=== PATIENT | female | born 1935 | race Caucasian/White ===

== ENCOUNTER 2016-04-12 13:11 | Inpatient (IN) | payer OTHER ==
[~2016-04-12] VITALS: Ht 157.5 cm; Wt 37.1 kg
--- NOTE | 2016-04-12 15:59 | ED NURSING NOTES ---
Clinical Report - Nurses [place] [address] [place] [address] 04/12/2016 13:16 Patient: SHELDON WATTS TRIAGE Triage time 1315 PM. Acuity: LEVEL 3. Chief Complaint: CHILLS, MUSCLE ACHES, FATIGUE and POOR APPETITE. Alert. No acute distress. SEPSIS SCREEN: Sepsis Screen. Negative (no infection suspected/documented). GRACIE COMA SCORE: Gracie Coma Scale: 15- eyes open spontaneously (4); best verbal response- oriented x 4 (5); best motor response- obeys commands (6). --13:37 Shona Bowles R.N. 13:22 04/12/16. BP: 100/63 (small adult cuff) taken on the right arm, via an automated monitor, while lying. HR: 83. RR: 15. O2 saturation: 95% on room air. Temp: 97.8 F (oral). Pain level now: 06/01. --13:37 Shona Bowles R.N. Weight: 35.3 kg stated. Height/Length: 62 inches Per Patient. BMI: 14.2. --13:27 Shona Bowles R.N. Medications Acetaminophen Oral. --13:29 Shona Bowles R.N. Aspirin Adult Low Strength Oral. --13:29 Shona Bowles R.N. Cardizem CD Oral. --13:30 Shona Bowles R.N. Ketoconazole External. --13:30 Shona Bowles R.N. Allergies Codeine. --13:30 Shona Bowles R.N. Oranges. --13:30 Shona Bowles R.N. Ketoprofen. --13:31 Shona Bowles R.N. Medication/allergy information source: the patient. --13:37 Shona Bowles R.N. History Arrived by EMS, and from the physician's office. Historian: patient. Primary physician (ANGEL Hoskins). ( Pt lives in an assistance living, states not feeling well for the past week, "had a cold" admits to productive( thick ) coughing, feeling dizzy. Pt states that has pain on the right flank pain when coughing. Denies any fever. The nurse at assistance living sent her to [facility], which states O2 at 86 RA, was brought over by EMS). Onset. (1 weeks). She has had weakness, a cough and difficulty breathing. Reports muscle aches. Treatment SHOE POLISHER: None. PAST MEDICAL HX: Immunizations: up-to-date. SOCIAL HX: Current every day light tobacco smoker- less than 1/2 a pack per day. No alcohol use or drug use. No infectious disease exposure. ABUSE ASSESSMENT: No report of abuse. SELF HARM ASSESSMENT: A self harm assessment was performed. The patient answered "no" to the question "Do you have thoughts of harming or killing yourself?" and "Have you recently had thoughts about harming or killing others?". FALL RISK ASSESSMENT: Fall risk assessment completed. No fall risk identified. NUTRITIONAL RISK ASSESSMENT: The nutritional risk assessment revealed no deficiencies. FUNCTIONAL ASSESSMENT: Functional assessment: no impairments noted. LEARNING NEEDS ASSESSMENT: The learning needs assessment revealed no barriers. SKIN INTEGRITY ASSESSMENT: Skin integrity risk assessment completed. No skin integrity risk identified. --13:37 Shona Bowles R.N. Treatment SHOE POLISHER: EMS report reviewed. See report. Oxygen administered. Nasal airway (2 l). Pulse oximeter applied (96). BP. Upon arrival patient awake. Oxygen being administered at 2 liters/min via nasal cannula. --13:41 Shona Bowles R.N. PROBLEMS: Seborrheic Dermatitis. Atrial Fibrillation. --13:31 Shona Bowles R.N. ADDITIONAL SURGERIES: Breast Augmentation. --13:31 Shona Bowles R.N. Interventions ID band on patient. --13:37 Shona Bowles R.N. PHYSICAL ASSESSMENT To room via stretcher. GENERAL / NEURO / PSYCH: Alert. Oriented X 4. Appears in no acute distress. RESPIRATORY: Respirations not labored. Cough. Right mid- costochondral tenderness. Breath sounds within normal limits. CVS: Capillary refill less than 2 seconds. Pulses within normal limits. GI / : Abdomen soft and nontender and normal bowel sounds. SKIN: Skin intact. Skin is warm and dry. Poor skin turgor. --13:38 Shona Bowles R.N. NURSING PROGRESS NOTES Cardiac rhythm: atrial fibrillation. The initial plan of care for this patient has been created This plan of care was discussed with the patient. Oxygen administered. Monitoring of patient in place. Patient gowned. Reassurance given. Reassessment after oxygen administered. She is calm. GENERAL / NEURO / PSYCH: Denies headache. Two patient identifiers checked. Call light placed in reach. Side rails up x 2. Bed placed in lowest position. Brakes of bed on. Brakes of chair on. --13:43 Shona Bowles R.N. 13:39 04/12/16. BP: 113/64 (small adult cuff) taken on the left arm, via an automated monitor, while lying. HR: 85. RR: 17. O2 saturation: 98%. O2 started via nasal cannula at 2 liters/minute. Pain level now: 3/10. --13:43 Shona Bowles R.N. 14:13 04/12/2016 Site #1 started via IV in the left forearm with an 22g angiocath; two attempts. Saline lock flushed. --14:13 Shona Bowles R.N. 14:14 04/12/2016 Started bag #1 1000 mL IV Fluids IV NS (Saline); [place] [address] mL/kg over 1 hour(s) via site #1 via IV pump. Allergies verified and confirmed 5 rights. IV patency established. IV site checked: no pain, redness, or swelling. IV flushed thoroughly pre- and post-medication administration. --14:14 Shona Bowles R.N. EKG time: (13:59). EKG was performed by a tech and shown to the ED physician. --14:24 Beatris Young 15:16 04/12/16. BP: 125/60. HR: 66. RR: 18. O2 saturation: 98%. Pain level now 0/10. --15:17 Maine Carr R.N. ( pt has had her xray. resume fluids.). --15:17 Bruno, Maine, R.N. quality assurance monitor body, pulse oximeter and NIBP monitor placed on patient; bus monitor- Lead II; monitor alarms on. The patient is calm and resting quietly. Call light placed in reach. --15:17 Maine Carr R.N. ( Lab called for BC x 2.). --15:23 Maine Carr R.N. 1430 late entry -118 PM. Cardiac rhythm: atrial fibrillation. Oxygen administered. Monitoring of patient in place. Reassurance given. The patient is calm and resting quietly. RESPIRATORY: Denies difficulty breathing. CVS: Denies chest pain. GI / : Denies nausea. --15:44 Shona Bowles R.N. 14:30 04/12/16. BP: 138/60. HR: 70 (irregular). RR: 22. O2 saturation: 96%. O2 started via nasal cannula at 2 liters/minute. Pain level now: 0/10. Additional comments: pt O2 goes down to 86 on RA. --15:44 Shona Bowles R.N. 15:45 PM late entry -. Cardiac rhythm: atrial fibrillation. Reassurance given. 16 fr in/out catheterization. During procedure hand hygiene observed. Return of 100 mL yellow-colored clear urine; odor is normal. She tolerated procedure well. ( Lab at bedside attempted BC x2 unable to obtain, UA obtained via cath. Pt still SOB on exertion). CVS: Denies chest pain. Two patient identifiers checked. Call light placed in reach. Side rails up x 2. Bed placed in lowest position. Brakes of bed on. Brakes of chair on. --16:00 Shona Bowles R.N. 15:30 04/12/16. BP: 123/61. HR: 67. RR: 18. O2 saturation: 93%. O2 started via nasal cannula at 3 liters/minute. Pain level now: 0/10. --16:00 Shona Bowles R.N. 16:00 04/12/2016 IV Fluids IV NS Bag Change: bag #1 completed. Total amount infused: 1000. STARTED bag #2 (1000 mL) at 100 mL/hr via IV pump. Confirmed 5 rights. IV patency established. IV site checked: no pain, redness, or swelling. IV flushed thoroughly. --16:00 Shona Bowles R.N. 16:08 04/12/16. Temp: 96.8 F (rectal). --16:08 Shona Bowles R.N. 16:05 04/12/16. Temp: 97 F (rectal). --16:15 Beatris Young 16:33 04/12/2016 Duoneb (Ipratropium-Albuterol) Neb TX Nebulizer 1 unit dose given. --16:33 Alcira Rea 17:13 04/12/2016 Started 1 gm of Ceftriaxone IVPB in bag #1 50 mL; at 150 mL/hr over 30 minute(s) via site #1 via IV pump. Allergies verified and confirmed 5 rights. IV patency established. IV site checked: no pain, redness, or swelling. IV flushed thoroughly pre- and post-medication administration. --17:13 Shona Bowles R.N. 17:00 late entry - PM. Cardiac rhythm: atrial fibrillation. Reassurance given. Reassessment after oxygen and fluids administered and medication administered. She has had no adverse reaction. Overall patient status is improved- she states feels better. RESPIRATORY: Denies difficulty breathing. Respiratory distress present. CVS: Denies chest pain. GI / : Denies nausea. Two patient identifiers checked. Call light placed in reach. Side rails up. Bed placed in lowest position. Brakes of bed on. Brakes of chair on. --17:45 Shona Bowles R.N. 17:43 04/12/16. BP: 122/64. HR: 65 (irregular). RR: 20. O2 saturation: 98%. O2 started via nasal cannula at 2 liters/minute. Pain level now: 0/10. --17:45 Shona Bowles R.N. The patient reports no complaints. Patient waiting for admit bed and (Report). --17:52 Shona Bowles R.N. 18:00 04/12/2016 Ceftriaxone IVPB Response: no adverse reaction. --18:56 Shona Bowles R.N. 18:01 04/12/2016 Ceftriaxone IVPB Discontinued: bag #1 infused upon admission. Total amount infused: 50 mL. IV patency established. IV site checked: no pain, redness, or swelling. IV flushed thoroughly. --18:56 Shona Bowles R.N. DISPOSITION / DISCHARGE 18:39 04/12/2016 Site #1 reassessed; patent and infusing well. --18:54 Shona Bowles R.N. Cardiac rhythm: atrial fibrillation. Departure time: 1835 PM. The goals identified in the patient's plan of care were met. Admitted to Acute Care. Report was given to a nurse. Report included patient's care, treatment, medications, reviewed medication reconcilliation, and condition (including any recent changes or anticipated changes). All questions were answered. Report was acknowledged. (KRISTAL Stuart). ( Pt transferred safely, IV patent). --18:56 Shona Bowles R.N. 18:30 04/12/16. BP: 121/99 (regular adult cuff) taken on the right arm, while lying. HR: 79. RR: 20. O2 saturation: 96%. O2 started via nasal cannula at 2 liters/minute. Temp: 97.8 F (oral). Pain level now: 0/10. --18:56 Shona Bowles R.N. Locked/Released at 04/12/2016 18:57 by Shona Bowles R.N.
--- NOTE | 2016-04-12 15:59 | ED CLINICAL REPORT ---
Clinical Report - Physicians/Mid Levels [facility] [address] [place] [address] 04/12/2016 13:16 Patient: SHELDON WATTS Time Seen: 13:51 Apr 12 2016. Arrived- By ambulance. Historian- EMS personnel. HISTORY OF PRESENT ILLNESS Chief Complaint: COUGH. This started 7 days and is still present. The illness is described as mild. The patient has had sputum production, a cough and muscle aches. No chest discomfort or pain or sinus drainage. Additional history - No known contact with a sick individual. (patient lives in assisted living, and was referred to go see her primary care doctor today, upon arrival to such, she had oxygen of 85-86% room air, and was referred to the ER by EMS.). REVIEW OF SYSTEMS No nausea, diarrhea, calf pain or pain or difficulty with urination. No mouth sores, chest pain or abdominal pain. All systems otherwise negative, except as recorded above. PAST HISTORY Pt care at [facility] Full code. Problems: Seborrheic Dermatitis. Atrial Fibrillation. Additional Surgeries: Breast Augmentation. Medications: Ketoconazole External. Cardizem CD Oral. Aspirin Adult Low Strength Oral. Acetaminophen Oral. Allergies: Codeine. Ketoprofen. Oranges. ADDITIONAL NOTES The nursing notes have been reviewed. PHYSICAL EXAM Vital Signs: 04/12/2016 13:22 BP: 100/63. HR: 83. RR: 15. O2 saturation: 95%. Temp: 97.8 F. Pain level now: 3/10. Appearance: Alert. No apparent distress. Eyes: Eyes normal inspection. ENT: Ears normal. Pharynx normal. Uvula midline. No tonsillar exudate or muffled or hoarse voice. Neck: Normal inspection. CVS: Abnormal rate (irreg/ irreg). Respiratory: No respiratory distress. Breath sounds normal. Back: (dry scaling skin noted). Neuro: The patient is disoriented (to year only). LABS, X-RAYS, AND EKG EKG: EKG time: (1359). No acute process. No acute ischemia. Rate: 79. premature atrial complxes. The study has been interpreted contemporaneously. The EKG appears to be a good tracing. Laboratory Tests: UA-Culture if indicated: (MARIE: 04/12/2016 15:55) ( [facility] 04/12/2016 16:50) Final results Test Result Flag Units (Reference) URINE COLOR YELLOW URINE APPEARANCE CLEAR URINE GLUCOSE NEGATIVE (NEGATIVE) URINE BILIRUBIN ICTOTEST NEGATIVE (NEGATIVE) URINE KETONE 2+ (NEGATIVE) URINE SPECIFIC GRAVITY 1.025 (1.010-1.030) URINE PH 6.0 (5.0-8.0) URINE PROTEIN Y (NEGATIVE) URINE UROBILINOGEN 0.2 EU/dL (0.2-1.0) URINE NITRITE NEGATIVE (NEGATIVE) URINE BLOOD NEGATIVE (NEGATIVE) URINE LEUK ESTERASE NEGATIVE (NEGATIVE) URINE RBC NONE SEEN rbc/hpf (0-1) URINE WBC RARE wbc/hpf (0-1) URINE EPITHELIAL CELLS RARE EPI/hpf (0-5) URINE BACTERIA NONE SEEN (NONE SEEN) URINE COMMENT CULT NOT INDICATED 10-15 Hyaline Casts/l.p.f.URINE CULTURES ARE SET-UP BASED ON THE FOLLOWING CRITERIA:POSITIVE NITRITEPOSITIVE LEUKOCYTE ESTERASEGREATER THAN 10 WHITE BLOOD CELLSMODERATE (2+) OR GREATER BACTERIA CBC w Diff: (MARIE: 04/12/2016 14:00) ( [facility] 04/12/2016 14:08) Final results Test Result Flag Units (Reference) WHITE BLOOD COUNT 3.2 L K/uL (4.5-11.5) RED BLOOD COUNT 5.22 H M/uL (4.00-5.20) HEMOGLOBIN 13.7 gm/dL (12.0-16.0) HEMATOCRIT 43.4 % (36.0-46.0) MEAN CELL VOLUME 83 fL (80-100) MEAN CORPUSCULAR HGB 26 pg (26-34) MEAN CORPUSCULAR HGB CONC 32 g/dL (31-37) RED CELL DISTRIBUTION WIDTH 14.6 % (11.6-14.8) PLATELET COUNT 226 K/uL (150-400) NEUTROPHIL % 70.2 % (50-75) LYMPH % 19.5 L % (25-40) MONO % 9.8 % (3-14) EOSINOPHIL % 0.2 % (0-4) BASOPHIL % 0.3 % (0-2) [id number]: (MARIE: 04/12/2016 14:00) ( [facility] 04/12/2016 16:26) Final results Test Result Flag Units (Reference) D-DIMER QUANTITATIVE 1.07 H ug/mLFEU (0.27-0.52) The primary value of this quantitative assay relates toits negative predictive value (i.e. exclusion) of pulmonaryembolism/deep vein thrombosis/DIC.Elevated levels of d-dimer may also occur with:, age, cancer, inflammation, liver disease,post-op, infection, hematoma, coronary disease, peripheralarteriopathy, bleeding disorders and thrombolytic treatment.Results should be correlated with other clinical andradiological data.Testing Methodology: Latex Immunoassay Lactate, Serum: (MARIE: 04/12/2016 14:40) ( [facility] 04/12/2016 15:14) Final results Test Result Flag Units (Reference) LACTIC ACID 1.3 mmol/L (0.4-2.0) [id number]: (MARIE: 04/12/2016 14:40) ( [facility] 04/12/2016 15:25) Final results Test Result Flag Units (Reference) PROCALCITONIN <0.5 ng/mL (0-0.5) PCT Concentration: Interpretation : Risk/option for action PCT <=0.5 ng/mL : Systemic : Low risk forinfection(sepsis): progression to severeis not likely. : systemic infection.Local bacterial : CAUTION-PCT levelsinfection is : below 0.5 ng/mL do notpossible. : exclude an infection,because localizedinfections (withoutsystemic signs) may beassociated with suchlow levels. If PCT ismeasured very earlyafter a bacterialchallenge (usually <6hours), these valuesmay still be low. Inthis case PCT shouldbe re-assessed 6-24hours later. PCT >0.5 and : Systemic infection: Moderate risk for<= 2 ng/mL : (sepsis) is : progression to severepossible, but : systemic infection.other conditions : The patient should beare known to : closely monitoredelevate PCT. : both clinically andby re-assessing PCTwithin 6-24 hours. PCT > 2 ng/mL : Systemic infection: High risk for(sepsis) is likely: progression to severeunless other : systemic infection.causes are known. : PCT >= 10 ng/mL : Important systemic: High likelihood ofinflammatory : severe sepsis orresponse, almost : septic shock.exclusively due to:severe bacterial :sepsis or septic :shock. : CHEM 13 PANEL: (MARIE: 04/12/2016 14:00) ( MsgRcvd 04/12/2016 14:28) Final results Test Result Flag Units (Reference) GLUCOSE 81 mg/dL (70-110) BUN 42 H mg/dL (7-18) CREATININE 1.6 H mg/dL (0.6-1.3) Estimated GFR 32.96 mL/min Estimated GFR- 39.95 mL/min Note: Persistent reduction over 3 months in eGFR<60 mL/min/1.73 m2 defines CKD. Patients with eGFR values>=60 mL/min/1.73 m2 may also have CKD if evidence ofpersistent proteinuria. Additional information may be foundat www.kidney.org. SODIUM 131 L mmol/L (136-145) POTASSIUM 5.1 mmol/L (3.5-5.1) CHLORIDE 97 L mmol/L (98-107) CARBON DIOXIDE 20 L mmol/L (21-32) CALCIUM 9.3 mg/dL (8.5-10.1) TOTAL PROTEIN 7.3 g/dL (6.4-8.2) ALBUMIN 3.4 g/dL (3.3-5.0) BILIRUBIN, TOTAL 0.4 mg/dL (0.0-1.0) ALKALINE PHOSPHATASE 61 U/L (46-116) AST (SGOT) 45 H U/L (15-37) ALT (SGPT) 22 U/L (12-78) MAGNESIUM 2.0 mg/dL (1.8-2.4) CPK 123 U/L (24-260) TROPONIN I <0.05 ng/mL (0.00-1.5) TROPONIN REFERENCE RANGE:<0.1 NEGATIVE0.1-1.5 INDETERMINANT>1.5 POSITIVE Rapid Influenza Screen: (MARIE: 04/12/2016 14:20) ( MsgRcvd 04/12/2016 14:53) Final results SPECIMEN DESCRIPTION: N Test Result Flag Units (Reference) RAPID INFLUENZA SCREEN DATE: 04/12/16 INFLUENZA A: NEGATIVE SCREEN FOR INFLUENZA A INFLUENZA B: NEGATIVE SCREEN FOR INFLUENZA B . PROGRESS AND PROCEDURES Course of Care: Patient here in the ER, with a weakness, Reports unable to get to the cafeteria at her assisted living, as it is difficult to ambulate. Patient has had fevers chills, cough at this time concern for acute exacerbation of her COPD, with dehydration, case discussed with Dr. Domingo, who will admit for observation. Holding orders written by Dr. Mackey. 04/12/2016 13:39 BP: 113/64. HR: 85. RR: 17. O2 saturation: 98%. Pain level now: 3/10. Patient is stable. Physical exam findings are improved. Symptoms better. Patient/family counseled. Disposition: Discharged. CLINICAL IMPRESSION Dehydration COPD exacerbation. INSTRUCTIONS Drink plenty of fluids. (Electronically signed by Catalina Cruz P.A.-C 04/12/2016 23:10)
--- NOTE | 2016-04-12 15:59 | ED CLINICAL REPORT ---
Clinical Report - Physicians/Mid Levels [facility] [address] [place] [address] 04/12/2016 13:16 Patient: SHELDON WATTS Time Seen: 13:51 Apr 12 2016. Arrived- By ambulance. Historian- EMS personnel. HISTORY OF PRESENT ILLNESS Chief Complaint: COUGH. This started 7 days and is still present. The illness is described as mild. The patient has had sputum production, a cough and muscle aches. No chest discomfort or pain or sinus drainage. Additional history - No known contact with a sick individual. (patient lives in assisted living, and was referred to go see her primary care doctor today, upon arrival to such, she had oxygen of 85-86% room air, and was referred to the ER by EMS.). REVIEW OF SYSTEMS No nausea, diarrhea, calf pain or pain or difficulty with urination. No mouth sores, chest pain or abdominal pain. All systems otherwise negative, except as recorded above. PAST HISTORY Pt care at [facility] Full code. Problems: Seborrheic Dermatitis. Atrial Fibrillation. Additional Surgeries: Breast Augmentation. Medications: Ketoconazole External. Cardizem CD Oral. Aspirin Adult Low Strength Oral. Acetaminophen Oral. Allergies: Codeine. Ketoprofen. Oranges. ADDITIONAL NOTES The nursing notes have been reviewed. PHYSICAL EXAM Vital Signs: 04/12/2016 13:22 BP: 100/63. HR: 83. RR: 15. O2 saturation: 95%. Temp: 97.8 F. Pain level now: 3/10. Appearance: Alert. No apparent distress. Eyes: Eyes normal inspection. ENT: Ears normal. Pharynx normal. Uvula midline. No tonsillar exudate or muffled or hoarse voice. Neck: Normal inspection. CVS: Abnormal rate (irreg/ irreg). Respiratory: No respiratory distress. Breath sounds normal. Back: (dry scaling skin noted). Neuro: The patient is disoriented (to year only). LABS, X-RAYS, AND EKG EKG: EKG time: (1359). No acute process. No acute ischemia. Rate: 79. premature atrial complxes. The study has been interpreted contemporaneously. The EKG appears to be a good tracing. Laboratory Tests: UA-Culture if indicated: (MARIE: 04/12/2016 15:55) ( [facility] 04/12/2016 16:50) Final results Test Result Flag Units (Reference) URINE COLOR YELLOW URINE APPEARANCE CLEAR URINE GLUCOSE NEGATIVE (NEGATIVE) URINE BILIRUBIN ICTOTEST NEGATIVE (NEGATIVE) URINE KETONE 2+ (NEGATIVE) URINE SPECIFIC GRAVITY 1.025 (1.010-1.030) URINE PH 6.0 (5.0-8.0) URINE PROTEIN Y (NEGATIVE) URINE UROBILINOGEN 0.2 EU/dL (0.2-1.0) URINE NITRITE NEGATIVE (NEGATIVE) URINE BLOOD NEGATIVE (NEGATIVE) URINE LEUK ESTERASE NEGATIVE (NEGATIVE) URINE RBC NONE SEEN rbc/hpf (0-1) URINE WBC RARE wbc/hpf (0-1) URINE EPITHELIAL CELLS RARE EPI/hpf (0-5) URINE BACTERIA NONE SEEN (NONE SEEN) URINE COMMENT CULT NOT INDICATED 10-15 Hyaline Casts/l.p.f.URINE CULTURES ARE SET-UP BASED ON THE FOLLOWING CRITERIA:POSITIVE NITRITEPOSITIVE LEUKOCYTE ESTERASEGREATER THAN 10 WHITE BLOOD CELLSMODERATE (2+) OR GREATER BACTERIA CBC w Diff: (MARIE: 04/12/2016 14:00) ( [facility] 04/12/2016 14:08) Final results Test Result Flag Units (Reference) WHITE BLOOD COUNT 3.2 L K/uL (4.5-11.5) RED BLOOD COUNT 5.22 H M/uL (4.00-5.20) HEMOGLOBIN 13.7 gm/dL (12.0-16.0) HEMATOCRIT 43.4 % (36.0-46.0) MEAN CELL VOLUME 83 fL (80-100) MEAN CORPUSCULAR HGB 26 pg (26-34) MEAN CORPUSCULAR HGB CONC 32 g/dL (31-37) RED CELL DISTRIBUTION WIDTH 14.6 % (11.6-14.8) PLATELET COUNT 226 K/uL (150-400) NEUTROPHIL % 70.2 % (50-75) LYMPH % 19.5 L % (25-40) MONO % 9.8 % (3-14) EOSINOPHIL % 0.2 % (0-4) BASOPHIL % 0.3 % (0-2) [id number]: (MARIE: 04/12/2016 14:00) ( [facility] 04/12/2016 16:26) Final results Test Result Flag Units (Reference) D-DIMER QUANTITATIVE 1.07 H ug/mLFEU (0.27-0.52) The primary value of this quantitative assay relates toits negative predictive value (i.e. exclusion) of pulmonaryembolism/deep vein thrombosis/DIC.Elevated levels of d-dimer may also occur with:, age, cancer, inflammation, liver disease,post-op, infection, hematoma, coronary disease, peripheralarteriopathy, bleeding disorders and thrombolytic treatment.Results should be correlated with other clinical andradiological data.Testing Methodology: Latex Immunoassay Lactate, Serum: (MARIE: 04/12/2016 14:40) ( [facility] 04/12/2016 15:14) Final results Test Result Flag Units (Reference) LACTIC ACID 1.3 mmol/L (0.4-2.0) [id number]: (MARIE: 04/12/2016 14:40) ( [facility] 04/12/2016 15:25) Final results Test Result Flag Units (Reference) PROCALCITONIN <0.5 ng/mL (0-0.5) PCT Concentration: Interpretation : Risk/option for action PCT <=0.5 ng/mL : Systemic : Low risk forinfection(sepsis): progression to severeis not likely. : systemic infection.Local bacterial : CAUTION-PCT levelsinfection is : below 0.5 ng/mL do notpossible. : exclude an infection,because localizedinfections (withoutsystemic signs) may beassociated with suchlow levels. If PCT ismeasured very earlyafter a bacterialchallenge (usually <6hours), these valuesmay still be low. Inthis case PCT shouldbe re-assessed 6-24hours later. PCT >0.5 and : Systemic infection: Moderate risk for<= 2 ng/mL : (sepsis) is : progression to severepossible, but : systemic infection.other conditions : The patient should beare known to : closely monitoredelevate PCT. : both clinically andby re-assessing PCTwithin 6-24 hours. PCT > 2 ng/mL : Systemic infection: High risk for(sepsis) is likely: progression to severeunless other : systemic infection.causes are known. : PCT >= 10 ng/mL : Important systemic: High likelihood ofinflammatory : severe sepsis orresponse, almost : septic shock.exclusively due to:severe bacterial :sepsis or septic :shock. : CHEM 13 PANEL: (MARIE: 04/12/2016 14:00) ( MsgRcvd 04/12/2016 14:28) Final results Test Result Flag Units (Reference) GLUCOSE 81 mg/dL (70-110) BUN 42 H mg/dL (7-18) CREATININE 1.6 H mg/dL (0.6-1.3) Estimated GFR 32.96 mL/min Estimated GFR- 39.95 mL/min Note: Persistent reduction over 3 months in eGFR<60 mL/min/1.73 m2 defines CKD. Patients with eGFR values>=60 mL/min/1.73 m2 may also have CKD if evidence ofpersistent proteinuria. Additional information may be foundat www.kidney.org. SODIUM 131 L mmol/L (136-145) POTASSIUM 5.1 mmol/L (3.5-5.1) CHLORIDE 97 L mmol/L (98-107) CARBON DIOXIDE 20 L mmol/L (21-32) CALCIUM 9.3 mg/dL (8.5-10.1) TOTAL PROTEIN 7.3 g/dL (6.4-8.2) ALBUMIN 3.4 g/dL (3.3-5.0) BILIRUBIN, TOTAL 0.4 mg/dL (0.0-1.0) ALKALINE PHOSPHATASE 61 U/L (46-116) AST (SGOT) 45 H U/L (15-37) ALT (SGPT) 22 U/L (12-78) MAGNESIUM 2.0 mg/dL (1.8-2.4) CPK 123 U/L (24-260) TROPONIN I <0.05 ng/mL (0.00-1.5) TROPONIN REFERENCE RANGE:<0.1 NEGATIVE0.1-1.5 INDETERMINANT>1.5 POSITIVE Rapid Influenza Screen: (MARIE: 04/12/2016 14:20) ( MsgRcvd 04/12/2016 14:53) Final results SPECIMEN DESCRIPTION: N Test Result Flag Units (Reference) RAPID INFLUENZA SCREEN DATE: 04/12/16 INFLUENZA A: NEGATIVE SCREEN FOR INFLUENZA A INFLUENZA B: NEGATIVE SCREEN FOR INFLUENZA B . PROGRESS AND PROCEDURES Course of Care: Patient here in the ER, with a weakness, Reports unable to get to the cafeteria at her assisted living, as it is difficult to ambulate. Patient has had fevers chills, cough at this time concern for acute exacerbation of her COPD, with dehydration, case discussed with Dr. Domingo, who will admit for observation. Holding orders written by Dr. Mackey. 04/12/2016 13:39 BP: 113/64. HR: 85. RR: 17. O2 saturation: 98%. Pain level now: 3/10. Patient is stable. Physical exam findings are improved. Symptoms better. Patient/family counseled. Disposition: Discharged. CLINICAL IMPRESSION Dehydration COPD exacerbation. INSTRUCTIONS Drink plenty of fluids. (Electronically signed by Catalina Cruz P.A.-C 04/12/2016 23:10)
--- NOTE | 2016-04-12 15:59 | ED ORDER SUMMARY ---
..... Patient: SHELDON WATTS OrderSheet [facility] VisitID: [id number] [place] [address] 80y, F Registration Date/Time: 04/12/2016 ORDER SHEET Weight: 35.3 kg (stated) Allergies: Codeine, Oranges, Ketoprofen GENERAL ORDERS: Chest 2V Urgent (13:49 04/12/2016 EKoroleva P.A.-C) (Ack 13:52 LTapper) (14:53 EHassan R.N.) Rapid Influenza Screen (Nasal Pharyngeal) (n) Urgent (13:49 04/12/2016 EKoroleva P.A.-C) (Ack 13:52 LTapper) (14:24 EHassan R.N.) Cardiac Panel Stat (13:49 04/12/2016 EKoroleva P.A.-C) (Ack 13:52 LTapper) (14:13 EHassan R.N.) UA-Culture if indicated Urgent (13:49 04/12/2016 EKoroleva P.A.-C) (Ack 13:52 LTapper) (16:10 EHassan R.N.) Parlor Maid (Continuous) (13:49 04/12/2016 EKoroleva P.A.-C) (14:13 EHassan R.N.) EKG - ER Stat (13:49 04/12/2016 EKoroleva P.A.-C) (Ack 13:52 LTapper) (14:13 EHassan R.N.) Oxygen (2 L/min) (NC) (13:49 04/12/2016 EKoroleva P.A.-C) (14:13 EHassan R.N.) PCT (Procalcitonin) Urgent (14:17 04/12/2016 EKoroleva P.A.-C) (Ack 14:45 LTapper) (14:53 EHassan R.N.) Lactate, Serum Urgent (14:17 04/12/2016 EKoroleva P.A.-C) (Ack 14:45 LTapper) (14:53 EHassan R.N.) Blood Culture (Yes) (N/A) Urgent (15:02 04/12/2016 EKoroleva P.A.-C) (Ack 15:17 LTapper) (15:21 SBalde R.N.) D-Dimer Urgent (15:45 04/12/2016 EKoroleva P.A.-C) (Ack 15:46 LTapper) (18:18 EHassan R.N.) Vitals (Temp) (rectal temp) (15:45 04/12/2016 EKoroleva P.A.-C) (16:08 EHassan R.N.) MEDICATION ORDERS: DuoNeb Neb Tx 1 unit dose (NOW) (16:18 04/12/2016 EKoroleva P.A.-C) (16:33 RMcCarson) IV FLUIDS: IV NS : initial bolus 1000 mL (1000 mL/hr), then 100 mL/hr for X1 (NOW); Lavelle (13:49 04/12/2016 EKoroleva P.A.-C) (14:14 EHassan R.N.) Ceftriaxone IV 1 gm/50mL (NOW) (16:18 04/12/2016 EKoroleva P.A.-C) (Ack 16:22 SStone R.N.) (17:13 EHassan R.N.) ORDER SHEET NOTES: [Electronically signed by Shona Bowles R.N. (18:57 04/12/2016)] [Electronically locked/signed by Shona Bowles R.N. (18:57 04/12/2016)]
--- NOTE | 2016-04-12 15:59 | ED ORDER SUMMARY ---
..... Patient: SHELDON WATTS OrderSheet [facility] VisitID: [id number] [place] [address] 80y, F Registration Date/Time: 04/12/2016 ORDER SHEET Weight: 35.3 kg (stated) Allergies: Codeine, Oranges, Ketoprofen GENERAL ORDERS: Chest 2V Urgent (13:49 04/12/2016 EKoroleva P.A.-C) (Ack 13:52 LTapper) (14:53 EHassan R.N.) Rapid Influenza Screen (Nasal Pharyngeal) (n) Urgent (13:49 04/12/2016 EKoroleva P.A.-C) (Ack 13:52 LTapper) (14:24 EHassan R.N.) Cardiac Panel Stat (13:49 04/12/2016 EKoroleva P.A.-C) (Ack 13:52 LTapper) (14:13 EHassan R.N.) UA-Culture if indicated Urgent (13:49 04/12/2016 EKoroleva P.A.-C) (Ack 13:52 LTapper) (16:10 EHassan R.N.) Rn Primary Care (Continuous) (13:49 04/12/2016 EKoroleva P.A.-C) (14:13 EHassan R.N.) EKG - ER Stat (13:49 04/12/2016 EKoroleva P.A.-C) (Ack 13:52 LTapper) (14:13 EHassan R.N.) Oxygen (2 L/min) (NC) (13:49 04/12/2016 EKoroleva P.A.-C) (14:13 EHassan R.N.) PCT (Procalcitonin) Urgent (14:17 04/12/2016 EKoroleva P.A.-C) (Ack 14:45 LTapper) (14:53 EHassan R.N.) Lactate, Serum Urgent (14:17 04/12/2016 EKoroleva P.A.-C) (Ack 14:45 LTapper) (14:53 EHassan R.N.) Blood Culture (Yes) (N/A) Urgent (15:02 04/12/2016 EKoroleva P.A.-C) (Ack 15:17 LTapper) (15:21 SBalde R.N.) D-Dimer Urgent (15:45 04/12/2016 EKoroleva P.A.-C) (Ack 15:46 LTapper) (18:18 EHassan R.N.) Vitals (Temp) (rectal temp) (15:45 04/12/2016 EKoroleva P.A.-C) (16:08 EHassan R.N.) MEDICATION ORDERS: DuoNeb Neb Tx 1 unit dose (NOW) (16:18 04/12/2016 EKoroleva P.A.-C) (16:33 RMcCarson) IV FLUIDS: IV NS : initial bolus 1000 mL (1000 mL/hr), then 100 mL/hr for X1 (NOW); Lavelle (13:49 04/12/2016 EKoroleva P.A.-C) (14:14 EHassan R.N.) Ceftriaxone IV 1 gm/50mL (NOW) (16:18 04/12/2016 EKoroleva P.A.-C) (Ack 16:22 SStone R.N.) (17:13 EHassan R.N.) ORDER SHEET NOTES: [Electronically signed by Shona Bowles R.N. (18:57 04/12/2016)] [Electronically locked/signed by Shona Bowles R.N. (18:57 04/12/2016)]
--- NOTE | 2016-04-12 15:59 | ED NURSING NOTES ---
Clinical Report - Nurses [place] [address] [place] [address] 04/12/2016 13:16 Patient: SHELDON WATTS TRIAGE Triage time 1315 PM. Acuity: LEVEL 3. Chief Complaint: CHILLS, MUSCLE ACHES, FATIGUE and POOR APPETITE. Alert. No acute distress. SEPSIS SCREEN: Sepsis Screen. Negative (no infection suspected/documented). GRACIE COMA SCORE: Gracie Coma Scale: 15- eyes open spontaneously (4); best verbal response- oriented x 4 (5); best motor response- obeys commands (6). --13:37 Shona Bowles R.N. 13:22 04/12/16. BP: 100/63 (small adult cuff) taken on the right arm, via an automated monitor, while lying. HR: 83. RR: 15. O2 saturation: 95% on room air. Temp: 97.8 F (oral). Pain level now: 06/01. --13:37 Shona Bowles R.N. Weight: 35.3 kg stated. Height/Length: 62 inches Per Patient. BMI: 14.2. --13:27 Shona Bowles R.N. Medications Acetaminophen Oral. --13:29 Shona Bowles R.N. Aspirin Adult Low Strength Oral. --13:29 Shona Bowles R.N. Cardizem CD Oral. --13:30 Shona Bowles R.N. Ketoconazole External. --13:30 Shona Bowles R.N. Allergies Codeine. --13:30 Shona Bowles R.N. Oranges. --13:30 Shona Bowles R.N. Ketoprofen. --13:31 Shona Bowles R.N. Medication/allergy information source: the patient. --13:37 Shona Bowles R.N. History Arrived by EMS, and from the physician's office. Historian: patient. Primary physician (ANGEL Hoskins). ( Pt lives in an assistance living, states not feeling well for the past week, "had a cold" admits to productive( thick ) coughing, feeling dizzy. Pt states that has pain on the right flank pain when coughing. Denies any fever. The nurse at assistance living sent her to [place], which states O2 at 86 RA, was brought over by EMS). Onset. (1 weeks). She has had weakness, a cough and difficulty breathing. Reports muscle aches. Treatment OFFICE SUPPORT SPECIALIST: None. PAST MEDICAL HX: Immunizations: up-to-date. SOCIAL HX: Current every day light tobacco smoker- less than 1/2 a pack per day. No alcohol use or drug use. No infectious disease exposure. ABUSE ASSESSMENT: No report of abuse. SELF HARM ASSESSMENT: A self harm assessment was performed. The patient answered "no" to the question "Do you have thoughts of harming or killing yourself?" and "Have you recently had thoughts about harming or killing others?". FALL RISK ASSESSMENT: Fall risk assessment completed. No fall risk identified. NUTRITIONAL RISK ASSESSMENT: The nutritional risk assessment revealed no deficiencies. FUNCTIONAL ASSESSMENT: Functional assessment: no impairments noted. LEARNING NEEDS ASSESSMENT: The learning needs assessment revealed no barriers. SKIN INTEGRITY ASSESSMENT: Skin integrity risk assessment completed. No skin integrity risk identified. --13:37 Shona Bowles R.N. Treatment OFFICE SUPPORT SPECIALIST: EMS report reviewed. See report. Oxygen administered. Nasal airway (2 l). Pulse oximeter applied (96). BP. Upon arrival patient awake. Oxygen being administered at 2 liters/min via nasal cannula. --13:41 Shona Bowles R.N. PROBLEMS: Seborrheic Dermatitis. Atrial Fibrillation. --13:31 Shona Bowles R.N. ADDITIONAL SURGERIES: Breast Augmentation. --13:31 Shona Bowles R.N. Interventions ID band on patient. --13:37 Shona Bowles R.N. PHYSICAL ASSESSMENT To room via stretcher. GENERAL / NEURO / PSYCH: Alert. Oriented X 4. Appears in no acute distress. RESPIRATORY: Respirations not labored. Cough. Right mid- costochondral tenderness. Breath sounds within normal limits. CVS: Capillary refill less than 2 seconds. Pulses within normal limits. GI / : Abdomen soft and nontender and normal bowel sounds. SKIN: Skin intact. Skin is warm and dry. Poor skin turgor. --13:38 Shona Bowles R.N. NURSING PROGRESS NOTES Cardiac rhythm: atrial fibrillation. The initial plan of care for this patient has been created This plan of care was discussed with the patient. Oxygen administered. Monitoring of patient in place. Patient gowned. Reassurance given. Reassessment after oxygen administered. She is calm. GENERAL / NEURO / PSYCH: Denies headache. Two patient identifiers checked. Call light placed in reach. Side rails up x 2. Bed placed in lowest position. Brakes of bed on. Brakes of chair on. --13:43 Shona Bowles R.N. 13:39 04/12/16. BP: 113/64 (small adult cuff) taken on the left arm, via an automated monitor, while lying. HR: 85. RR: 17. O2 saturation: 98%. O2 started via nasal cannula at 2 liters/minute. Pain level now: 3/10. --13:43 Shona Bowles R.N. 14:13 04/12/2016 Site #1 started via IV in the left forearm with an 22g angiocath; two attempts. Saline lock flushed. --14:13 Shona Bowles R.N. 14:14 04/12/2016 Started bag #1 1000 mL IV Fluids IV NS (Saline); at 78657 mL/kg over 1 hour(s) via site #1 via IV pump. Allergies verified and confirmed 5 rights. IV patency established. IV site checked: no pain, redness, or swelling. IV flushed thoroughly pre- and post-medication administration. --14:14 Shona Bowles R.N. EKG time: (13:59). EKG was performed by a tech and shown to the ED physician. --14:24 Beatris Young 15:16 04/12/16. BP: 125/60. HR: 66. RR: 18. O2 saturation: 98%. Pain level now 0/10. --15:17 Maine Carr R.N. ( pt has had her xray. resume fluids.). --15:17 Bruno, Maine, R.N. monitor car operator, pulse oximeter and NIBP monitor placed on patient; cardiac sonographer- Lead II; monitor alarms on. The patient is calm and resting quietly. Call light placed in reach. --15:17 Maine Carr R.N. ( Lab called for BC x 2.). --15:23 Maine Carr R.N. 1430 late entry -118 PM. Cardiac rhythm: atrial fibrillation. Oxygen administered. Monitoring of patient in place. Reassurance given. The patient is calm and resting quietly. RESPIRATORY: Denies difficulty breathing. CVS: Denies chest pain. GI / : Denies nausea. --15:44 Shona Bowles R.N. 14:30 04/12/16. BP: 138/60. HR: 70 (irregular). RR: 22. O2 saturation: 96%. O2 started via nasal cannula at 2 liters/minute. Pain level now: 0/10. Additional comments: pt O2 goes down to 86 on RA. --15:44 Shona Bowles R.N. 15:45 PM late entry -. Cardiac rhythm: atrial fibrillation. Reassurance given. 16 fr in/out catheterization. During procedure hand hygiene observed. Return of 100 mL yellow-colored clear urine; odor is normal. She tolerated procedure well. ( Lab at bedside attempted BC x2 unable to obtain, UA obtained via cath. Pt still SOB on exertion). CVS: Denies chest pain. Two patient identifiers checked. Call light placed in reach. Side rails up x 2. Bed placed in lowest position. Brakes of bed on. Brakes of chair on. --16:00 Shona Bowles R.N. 15:30 04/12/16. BP: 123/61. HR: 67. RR: 18. O2 saturation: 93%. O2 started via nasal cannula at 3 liters/minute. Pain level now: 0/10. --16:00 Shona Bowles R.N. 16:00 04/12/2016 IV Fluids IV NS Bag Change: bag #1 completed. Total amount infused: 1000. STARTED bag #2 (1000 mL) at 100 mL/hr via IV pump. Confirmed 5 rights. IV patency established. IV site checked: no pain, redness, or swelling. IV flushed thoroughly. --16:00 Shona Bowles R.N. 16:08 04/12/16. Temp: 96.8 F (rectal). --16:08 Shona Bowles R.N. 16:05 04/12/16. Temp: 97 F (rectal). --16:15 Beatris Young 16:33 04/12/2016 Duoneb (Ipratropium-Albuterol) Neb TX Nebulizer 1 unit dose given. --16:33 Alcira Rea 17:13 04/12/2016 Started 1 gm of Ceftriaxone IVPB in bag #1 50 mL; at 150 mL/hr over 30 minute(s) via site #1 via IV pump. Allergies verified and confirmed 5 rights. IV patency established. IV site checked: no pain, redness, or swelling. IV flushed thoroughly pre- and post-medication administration. --17:13 Shona Bowles R.N. 17:00 late entry - PM. Cardiac rhythm: atrial fibrillation. Reassurance given. Reassessment after oxygen and fluids administered and medication administered. She has had no adverse reaction. Overall patient status is improved- she states feels better. RESPIRATORY: Denies difficulty breathing. Respiratory distress present. CVS: Denies chest pain. GI / : Denies nausea. Two patient identifiers checked. Call light placed in reach. Side rails up. Bed placed in lowest position. Brakes of bed on. Brakes of chair on. --17:45 Shona Bowles R.N. 17:43 04/12/16. BP: 122/64. HR: 65 (irregular). RR: 20. O2 saturation: 98%. O2 started via nasal cannula at 2 liters/minute. Pain level now: 0/10. --17:45 Shona Bowles R.N. The patient reports no complaints. Patient waiting for admit bed and (Report). --17:52 Shona Bowles R.N. 18:00 04/12/2016 Ceftriaxone IVPB Response: no adverse reaction. --18:56 Shona Bowles R.N. 18:01 04/12/2016 Ceftriaxone IVPB Discontinued: bag #1 infused upon admission. Total amount infused: 50 mL. IV patency established. IV site checked: no pain, redness, or swelling. IV flushed thoroughly. --18:56 Shona Bowles R.N. DISPOSITION / DISCHARGE 18:39 04/12/2016 Site #1 reassessed; patent and infusing well. --18:54 Shona Bowles R.N. Cardiac rhythm: atrial fibrillation. Departure time: 1835 PM. The goals identified in the patient's plan of care were met. Admitted to Acute Care. Report was given to a nurse. Report included patient's care, treatment, medications, reviewed medication reconcilliation, and condition (including any recent changes or anticipated changes). All questions were answered. Report was acknowledged. (KRISTAL Stuart). ( Pt transferred safely, IV patent). --18:56 Shona Bowles R.N. 18:30 04/12/16. BP: 121/99 (regular adult cuff) taken on the right arm, while lying. HR: 79. RR: 20. O2 saturation: 96%. O2 started via nasal cannula at 2 liters/minute. Temp: 97.8 F (oral). Pain level now: 0/10. --18:56 Shona Bowles R.N. Locked/Released at 04/12/2016 18:57 by Shona Bowles R.N.
--- NOTE | 2016-04-12 16:23 | DIAGNOSTIC IMAGING REPORT ---
PROCEDURE: XR CHEST 2 VIEW INDICATION: FEVER TECHNIQUE: PA and lateral views. COMPARISON: None. FINDINGS: Lungs are hyperexpanded and clear. Heart and mediastinum are normal. Thorax is normal. IMPRESSION: 1. No acute infiltrates. Results called to Nancy at 04:15 p.m.
--- NOTE | 2016-04-12 17:12 | Progress Note ---
Subjective General 80 y.o female who was seen in the office with cough, cold symptoms and weakness too weak to transport easily. Was taken to the ER by ambulance where she was found to have hypoxia and ? copd flare with hyper expanded lungs on CXR. Admitted for treatment of copd with abx, steroids, and breathing treatments. Physical Exam Vital Signs / I&Os Vital Signs Date Time Temp Pulse Resp B/P Pulse O2 O2 Flow FiO2 Ox Delivery Rate 04/12 1630 2.0 LAB Results Laboratory Tests 04/12 04/12 04/12 1555 1440 1440 Chemistry Lactic Acid (0.4 - 2.0 mmol/L) 1.3 Procalcitonin (0 - 0.5 ng/mL) <0.5 Urines Urine Color YELLOW Urine Appearance CLEAR Urine pH (5.0 - 8.0) 6.0 Ur Specific [place] (1.010 - 1.030) 1.025 Urine Protein (NEGATIVE) Y Urine Ketones (NEGATIVE) 2+ Urine Blood (NEGATIVE) NEGATIVE Urine Nitrite (NEGATIVE) NEGATIVE Ur Bilirubin Confirm (NEGATIVE) NEGATIVE Urine Urobilinogen (0.2 - 1.0 EU/dL) 0.2 Ur Leukocyte Esterase (NEGATIVE) NEGATIVE Urine RBC (0 - 1 rbc/hpf) NONE SEEN Urine WBC (0 - 1 wbc/hpf) RARE Ur Epithelial Cells (0 - 5 EPI/hpf) RARE Urine Bacteria (NONE SEEN) NONE SEEN Urine Glucose (NEGATIVE) NEGATIVE Urine Comment CULT NOT INDICATED 04/12 1400 Chemistry Plasma Sodium (136 - 145 mmol/L) 131 Plasma Potassium (3.5 - 5.1 mmol/L) 5.1 Plasma Chloride (98 - 107 mmol/L) 97 CO2 (Enzymatic) (21 - 32 mmol/L) 20 BUN (7 - 18 mg/dL) 42 Creatinine (0.6 - 1.3 mg/dL) 1.6 Est GFR ( Amer) (mL/min) 39.95 Est GFR (Non-Af Amer) (mL/min) 32.96 Glucose (70 - 110 mg/dL) 81 Plasma Calcium (8.5 - 10.1 mg/dL) 9.3 Plasma Magnesium (1.8 - 2.4 mg/dL) 2.0 Total Bilirubin (0.0 - 1.0 mg/dL) 0.4 AST (15 - 37 U/L) 45 ALT (12 - 78 U/L) 22 Alkaline Phosphatase (46 - 116 U/L) 61 Creatine Kinase (24 - 260 U/L) 123 Troponin (0.00 - 1.5 ng/mL) <0.05 Total Protein (6.4 - 8.2 g/dL) 7.3 Albumin (3.3 - 5.0 g/dL) 3.4 Coagulation D-Dimer, Quantitative (0.27 - 0.52 ug/mLFEU) 1.07 Hematology WBC (4.5 - 11.5 K/uL) 3.2 RBC (4.00 - 5.20 M/uL) 5.22 Hgb (12.0 - 16.0 gm/dL) 13.7 Hct (36.0 - 46.0 %) 43.4 MCV (80 - 100 fL) 83 MCH (26 - 34 pg) 26 RDW (11.6 - 14.8 %) 14.6 Neut % (Auto) (50 - 75 %) 70.2 Lymph % (Auto) (25 - 40 %) 19.5 [place] % (Auto) (3 - 14 %) 9.8 Eos % (Auto) (0 - 4 %) 0.2 Baso % (Auto) (0 - 2 %) 0.3 Plt Count, EDTA (150 - 400 K/uL) 226 PUBS MCHC (31 - 37 g/dL) 32 Microbiology Date/Time Procedure - Status Source Growth 04/12 1502 Blood Culture - ORD BLOOD 04/12 1502 Blood Culture - ORD BLOOD 04/12 1420 Influenza Screen - COMP NASALPHAR Imaging hyper expanded lungs, no acute infiltrates on cXR Assessment and Plan Problem List 1. COPD exacerbation Plan abx, steroids, inhalers 2. Weakness Plan PT eval
[2016-04-12 18:58] VITALS: BP 114/78
--- NOTE | 2016-04-12 20:08 | HISTORY AND PHYSICAL ---
ADMITTED: 04/12/2016 CHIEF COMPLAINT: 1. Weakness, shortness of breath HISTORY OF PRESENT ILLNESS: The patient is an 80-year-old female who presented to her clinic, [facility], today where she was seen by Yvonne Boyce. In the office, she was found to be short of breath and very weak. She was weak enough that she was unable to ambulate and/or transfer, she could not to get over across the street for further workup and imaging, hence, the decision was to transfer patient by ambulance across the street to the hospital to the emergency department for further workup. In the emergency department, patient was found to be significantly hypoxic and also very weak and with that decision was made for admission to the hospital. Her chest x-ray did show that she had findings consistent with chronic obstructive pulmonary disease exacerbation. MEDICAL/SURGICAL HISTORY: Past medical history: She has had some intermittent atrial fibrillation, osteoporosis. Past surgical history: Breast implants in the and left shoulder surgery in 1975. MEDICATIONS: 1. Cardizem 180 mg p.o. daily. 2. Aspirin 81 mg p.o. daily. 3. Ketoconazole cream to ears as needed for seborrhea. 4. Acetaminophen 2 tablets of 325 mg every 4 hours as needed for pain. ALLERGIES: 1. KETOPROFEN. 2. CODEINE. 3. CAFFEINE. 4. ORANGES. SOCIAL HISTORY: She is a . She has a history of smoking cigarettes in the past. She denies any drug or alcohol use. Occasional 1 cigarette per day, quit in year 2014. FAMILY HISTORY: Notable for alcoholism in mother and father, though rest is noncontributory. REVIEW OF SYSTEMS: She has been weak. She has had a cough. She has been feeling short of breath. Denies any fevers. Denies nausea, vomiting, diarrhea, or chest pain. PHYSICAL EXAMINATION: VITAL SIGNS: Blood pressure 100/63, heart rate of 83, respirations 15, saturating 95%, temperature is 97.8. HEENT: Extraocular movements intact. Pupils equal, round, reactive to light. The oropharynx has with dentures above and below, and moist mucous membranes. NECK: Supple without lymphadenopathy. HEART: Irregularly irregular, heart rate of 80 range. There is occasional missed beats. LUNGS: Diffuse wheezes and coarse breath sounds. ABDOMEN: Soft, it is nontender, nondistended. EXTREMITIES: No edema. No sores. GENITOURINARY: Deferred. RECTAL: Deferred. BREASTS: Deferred. NEUROLOGIC: Cranial nerves II-XII are intact. Strength and sensations grossly intact. LAB/IMAGING: EKG: Shows a heart rate of 79, sinus, with premature atrial complexes, no acute process, no ischemia. Her white count is 3.2, hematocrit of 43.4, platelets of 226,000. Comprehensive metabolic panel: Glucose 181, BUN of 42, creatinine of 1.6, sodium 131, potassium 5.1, chloride 97, carbon dioxide 20, magnesium 2.0, calcium 9.3, total protein 7.3. Albumin 3.4, bilirubin 0.4, alk phos 61, AST of 45, ALT of 22. CPK 123. Troponin I less than 0.05. D-dimer 1.07. Flu screen was negative for influenza A, B. Procalcitonin less than 0.05. Lactic acid 1.3. Urinalysis is normal. Chest x-ray: Shows no acute infiltrate, lungs are hyperexpanded. IMPRESSION: 1. Hypoxia. 2. Weakness. 3. Chest x-ray consistent with chronic obstructive pulmonary disease exacerbation. 4. Elevated D-dimer. PLAN: We will treat with nebulizers, prednisone and antibiotics. I will hold on a check for CT pulmonary angiogram as I think this is low risk in that she has no calf tenderness and no calf swelling. I anticipate that she will be discharged in 2-3 days after hospitalization with her chronic obstructive pulmonary disease exacerbation and weakness. We will have physical therapy involved as well for treating her weakness, may or may not need a care home facility at time of discharge, depending on how she responds to the antibiotics, treatments and physical therapy. Her code status was FULL CODE as well.
[2016-04-12] MEDS ORDERED: ACETAMINOPHEN325 MG PO (22:49)
[2016-04-12] MEDS ORDERED: ASPIRIN ADULT L81 MG PO (22:49)
[2016-04-12] MEDS ORDERED: CARDIZEM120 MG (22:50)
[2016-04-12 22:52] VITALS: BP 121/73
--- NOTE | 2016-04-12 23:11 | ED MAR SUMMARY ---
..... Medication Administration Record [facility] [address] [place] [address] Patient: SHELDON WATTS Visit ID: [id number] 80y, F Weight: 35.3 kg Height/Length: 62 in BMI: 14.2 ALLERGIES: Ketoprofen, Oranges, Codeine Start 14:14 04/12/2016 Shona Bowles RCathy Medication Administered: IV NS (SALINE), Dose: IV Fluids over 1 hour(s), Rate: 26795 mL/kg, Dispensed: 1000 mL bag, Site: #1 left forearm. Medication Ordered: IV NS : initial bolus 1000 mL (1000 mL/hr), then 100 mL/hr for X1 (NOW); Lavelle. Given 16:33 04/12/2016 Alcira Rea, Medication Administered: DUONEB [NEB TX] (IPRATROPIUM-ALBUTEROL), Dose: 1 unit dose Nebulizer Neb TX. Medication Ordered: DuoNeb Neb Tx 1 unit dose (NOW). Start 17:13 04/12/2016 Shona Bowles RСветланаNСветлана, Stop 18:01 04/12/2016 Shona Bowles R.N. Medication Administered: CEFTRIAXONE [IVPB], Dose: 1 gm IVPB over 30 minute(s), Rate: 150 mL/hr, Dispensed: 50 mL bag, Site: #1 left forearm. Medication Ordered: Ceftriaxone IV 1 gm/50mL (NOW).
--- NOTE | 2016-04-12 23:11 | ED MED RECONCILIATION SUMMARY ---
Patient: SHELDON WATTS Medication Reconciliation Report [facility] VisitID: [id number] [address] [place] [address] 80y, F Registration Date/Time: 04/12/2016 Weight: 35.3 kg Height/Length: 62 in. BMI: 14.2 ALLERGIES: Codeine, Ketoprofen, Oranges The patient's Home Medications are listed below: THE FOLLOWING MEDICATIONS NEED TO BE RECONCILED: Acetaminophen Oral Aspirin Adult Low Strength Oral Cardizem CD Oral Ketoconazole External The source(s) of the original Home Medication information: patient The following Medications were given to the patient in the Emergency Department: IV NS IV Fluids bolus 0, then 16801 mL/kg, administered: 04/12/2016 2:14:00 PM Duoneb [Neb Tx] Neb TX 1 unit dose, administered: 04/12/2016 4:33:00 PM Ceftriaxone [IVPB] IVPB bolus 0, then 1 gm 150 mL/hr, administered: 04/12/2016 5:13:00 PM The following Medications were prescribed to the patient: None.
--- NOTE | 2016-04-12 23:11 | ED MED RECONCILIATION SUMMARY ---
Patient: SHELDON WATTS Medication Reconciliation Report [facility] VisitID: [id number] [address] [place] [address] 80y, F Registration Date/Time: 04/12/2016 Weight: 35.3 kg Height/Length: 62 in. BMI: 14.2 ALLERGIES: Codeine, Ketoprofen, Oranges The patient's Home Medications are listed below: THE FOLLOWING MEDICATIONS NEED TO BE RECONCILED: Acetaminophen Oral Aspirin Adult Low Strength Oral Cardizem CD Oral Ketoconazole External The source(s) of the original Home Medication information: patient The following Medications were given to the patient in the Emergency Department: IV NS IV Fluids bolus 0, then 14791 mL/kg, administered: 04/12/2016 2:14:00 PM Duoneb [Neb Tx] Neb TX 1 unit dose, administered: 04/12/2016 4:33:00 PM Ceftriaxone [IVPB] IVPB bolus 0, then 1 gm 150 mL/hr, administered: 04/12/2016 5:13:00 PM The following Medications were prescribed to the patient: None.
--- NOTE | 2016-04-12 23:11 | ED MAR SUMMARY ---
..... Medication Administration Record [facility] [address] [place] [address] Patient: SHELDON WATTS Visit ID: [id number] 80y, F Weight: 35.3 kg Height/Length: 62 in BMI: 14.2 ALLERGIES: Ketoprofen, Oranges, Codeine Start 14:14 04/12/2016 Shona Bowles RCathy Medication Administered: IV NS (SALINE), Dose: IV Fluids over 1 hour(s), Rate: 16707 mL/kg, Dispensed: 1000 mL bag, Site: #1 left forearm. Medication Ordered: IV NS : initial bolus 1000 mL (1000 mL/hr), then 100 mL/hr for X1 (NOW); [place]. Given 16:33 04/12/2016 Alcira Rea, Medication Administered: DUONEB [NEB TX] (IPRATROPIUM-ALBUTEROL), Dose: 1 unit dose Nebulizer Neb TX. Medication Ordered: DuoNeb Neb Tx 1 unit dose (NOW). Start 17:13 04/12/2016 Shona Bowles RСвтеланаNСветлана, Stop 18:01 04/12/2016 Shona Bowles R.N. Medication Administered: CEFTRIAXONE [IVPB], Dose: 1 gm IVPB over 30 minute(s), Rate: 150 mL/hr, Dispensed: 50 mL bag, Site: #1 left forearm. Medication Ordered: Ceftriaxone IV 1 gm/50mL (NOW).
--- NOTE | 2016-04-12 23:11 | ED DISCHARGE INSTRUCTIONS ---
Patient: SHELDON WATTS General Instructions [facility] VisitID: [id number] [address] [place] [address] 80y, F Registration Date/Time: 04/12/2016 Dehydration COPD exacerbation. INSTRUCTIONS Drink plenty of fluids. (Electronically signed by Catalina Cruz P.A.-C 04/12/2016 23:10)
--- NOTE | 2016-04-12 23:11 | ED DISCHARGE INSTRUCTIONS ---
Patient: SHELDON WATTS General Instructions [facility] VisitID: [id number] [address] [place] [address] 80y, F Registration Date/Time: 04/12/2016 Dehydration COPD exacerbation. INSTRUCTIONS Drink plenty of fluids. (Electronically signed by Catalina Cruz P.A.-C 04/12/2016 23:10)
[2016-04-13 02:04] VITALS: BP 109/73
--- NOTE | 2016-04-13 06:04 | Progress Note ---
Subjective General 80 y.o female who was seen in the office with cough, cold symptoms and weakness too weak to transport easily. Was taken to the ER by ambulance where she was found to have hypoxia and ? copd flare with hyper expanded lungs on CXR. Admitted for treatment of copd with abx, steroids, and breathing treatments. States that she is feeling better. Is able to get up with walker. has been coughing lots still this am.Has some weakness and sob but improving per patient. Physical Exam Vital Signs / I&Os Vital Signs Date Time Temp Pulse Resp B/P Pulse O2 O2 Flow FiO2 Ox Delivery Rate 04/13 0212 Nasal 2.0 Cannula 04/13 0204 98.4 56 16 109/73 93 Nasal 2.0 Cannula 04/13 0115 2.0 04/12 2252 98.1 75 16 121/73 95 Nasal 2.0 Cannula 04/12 2006 2.0 04/12 2000 Nasal 2.0 Cannula 04/12 1858 97.9 70 18 114/78 94 Nasal 2.0 Cannula 04/12 1630 2.0 I&O 04/13 0000 04/12 1600 04/12 0800 Intake Total 273 Output Total 300 Balance -27 General Appearance Alert, Cooperative Lungs good air movement but a very deep cough Cardiovascular Regular rate and rhythm Abdomen Soft, No tenderness Extremities No edema LAB Results Laboratory Tests 04/12 04/12 04/12 1555 1440 1440 Chemistry Lactic Acid (0.4 - 2.0 mmol/L) 1.3 Procalcitonin (0 - 0.5 ng/mL) <0.5 Urines Urine Color YELLOW Urine Appearance CLEAR Urine pH (5.0 - 8.0) 6.0 Ur Specific [place] (1.010 - 1.030) 1.025 Urine Protein (NEGATIVE) Y Urine Ketones (NEGATIVE) 2+ Urine Blood (NEGATIVE) NEGATIVE Urine Nitrite (NEGATIVE) NEGATIVE Ur Bilirubin Confirm (NEGATIVE) NEGATIVE Urine Urobilinogen (0.2 - 1.0 EU/dL) 0.2 Ur Leukocyte Esterase (NEGATIVE) NEGATIVE Urine RBC (0 - 1 rbc/hpf) NONE SEEN Urine WBC (0 - 1 wbc/hpf) RARE Ur Epithelial Cells (0 - 5 EPI/hpf) RARE Urine Bacteria (NONE SEEN) NONE SEEN Urine Glucose (NEGATIVE) NEGATIVE Urine Comment CULT NOT INDICATED 04/12 1400 Chemistry Plasma Sodium (136 - 145 mmol/L) 131 Plasma Potassium (3.5 - 5.1 mmol/L) 5.1 Plasma Chloride (98 - 107 mmol/L) 97 CO2 (Enzymatic) (21 - 32 mmol/L) 20 BUN (7 - 18 mg/dL) 42 Creatinine (0.6 - 1.3 mg/dL) 1.6 Est GFR ( Amer) (mL/min) 39.95 Est GFR (Non-Af Amer) (mL/min) 32.96 Glucose (70 - 110 mg/dL) 81 Plasma Calcium (8.5 - 10.1 mg/dL) 9.3 Plasma Magnesium (1.8 - 2.4 mg/dL) 2.0 Total Bilirubin (0.0 - 1.0 mg/dL) 0.4 AST (15 - 37 U/L) 45 ALT (12 - 78 U/L) 22 Alkaline Phosphatase (46 - 116 U/L) 61 Creatine Kinase (24 - 260 U/L) 123 Troponin (0.00 - 1.5 ng/mL) <0.05 Total Protein (6.4 - 8.2 g/dL) 7.3 Albumin (3.3 - 5.0 g/dL) 3.4 Coagulation D-Dimer, Quantitative (0.27 - 0.52 ug/mLFEU) 1.07 Hematology WBC (4.5 - 11.5 K/uL) 3.2 RBC (4.00 - 5.20 M/uL) 5.22 Hgb (12.0 - 16.0 gm/dL) 13.7 Hct (36.0 - 46.0 %) 43.4 MCV (80 - 100 fL) 83 MCH (26 - 34 pg) 26 RDW (11.6 - 14.8 %) 14.6 Neut % (Auto) (50 - 75 %) 70.2 Lymph % (Auto) (25 - 40 %) 19.5 [place] % (Auto) (3 - 14 %) 9.8 Eos % (Auto) (0 - 4 %) 0.2 Baso % (Auto) (0 - 2 %) 0.3 Plt Count, EDTA (150 - 400 K/uL) 226 PUBS MCHC (31 - 37 g/dL) 32 Microbiology Date/Time Procedure - Status Source Growth 04/12 1502 Blood Culture - ORD BLOOD 04/12 1502 Blood Culture - ORD BLOOD 04/12 1420 Influenza Screen - COMP NASALPHAR Assessment and Plan Problem List 1. COPD exacerbation Plan Contiinue with breathing treatments. May try wean of O2 today 2. Weakness Plan PT to eval on weakness. Is doing better and will see when ready for d/c if home or SNF.
[2016-04-13 06:56] VITALS: BP 118/49
[2016-04-13 10:59] VITALS: BP 121/63
[2016-04-13 14:15] VITALS: BP 114/52
[2016-04-13] MEDS ORDERED: CARDIZEM C1 PO (15:31)
[2016-04-13] MEDS ORDERED: KETOCONAZOLE2 % TOP (15:32)
[2016-04-13 18:42] VITALS: BP 130/63
[2016-04-13 22:16] VITALS: BP 119/64
[2016-04-14 03:45] VITALS: BP 130/67
[2016-04-14 06:31] VITALS: BP 127/54
--- NOTE | 2016-04-14 09:27 | Progress Note ---
Subjective General 80 y.o female who was seen in the office with cough, cold symptoms and weakness too weak to transport easily. Was taken to the ER by ambulance where she was found to have hypoxia and ? copd flare with hyper expanded lungs on CXR. Admitted for treatment of copd with abx, steroids, and breathing treatments. States that she is feeling better. Is able to get up with walker. has been coughing lots still this am.Has some weakness and sob but improving per patient. Physical Exam Vital Signs / I&Os Vital Signs Date Time Temp Pulse Resp B/P Pulse O2 O2 Flow FiO2 Ox Delivery Rate 04/14 0631 97.9 112 18 127/54 92 Room Air 04/14 0345 97.7 75 20 130/67 93 Room Air 04/14 0117 2.0 04/13 2216 97.9 78 20 119/64 100 Nasal 2.0 Cannula 04/13 2043 2.0 04/13 1902 2.0 04/13 1842 98.4 87 20 130/63 93 Nasal 2.0 Cannula 04/13 1652 88 24 88 Room Air 04/13 1617 Nasal 2.0 Cannula 04/13 1415 2.0 04/13 1415 97.9 71 18 114/52 96 Nasal 2.0 Cannula 04/13 1309 2.0 04/13 1059 98.1 76 18 121/63 98 Nasal 2.0 Cannula I&O 04/13 0800 04/13 1600 04/14 0000 Intake Total 400 1729 Output Total 6919 029 8863 Balance -650 1029 -1075 General Appearance Alert, Oriented X3, Mild distress Lungs Bilateral rhonchi, coughing lots. Cardiovascular Regular rate and rhythm Abdomen Soft, No tenderness Extremities No edema Skin No Rashes Assessment and Plan Problem List 1. COPD exacerbation Plan Improving but concerning persistent sx and high band count with clear CXR and positive d-dimer. Will obtain CT chest with contrast to r/o PE. Will also order PT and discharge planning as pt may require SNF. 2. Weakness
[2016-04-14 10:21] VITALS: BP 120/50
--- NOTE | 2016-04-14 12:26 | DIAGNOSTIC IMAGING REPORT ---
PROCEDURE: CTA THORAX WITH CONTRAST INDICATION: Hyposia, r/o PE, initial encounter TECHNIQUE: 96 ml of Isovue 370 was injected intravenously and axial images were obtained of the entire thorax with 3D sagittal and coronal MIP reconstructions. COMPARISON: Chest x-ray 04/12/2016 FINDINGS: No evidence of pulmonary emboli. Severe emphysema with mild bibasilar atelectasis. Lingular complete atelectasis without evidence of a central mass. Left hemithorax volume loss. No adenopathy or effusion. No aortic dissection or aneurysm. Coronary atherosclerosis. Heart size is normal. Bilateral breast implants. Visualized upper abdomen is unremarkable. Mild degenerative changes of the spine. IMPRESSION: 1. No evidence of pulmonary emboli 2. Severe emphysema 3. Lingular atelectasis without evidence of central mass. This may be the result of a mucous plug or endobronchial obstructing lesion. Recommend comparison with prior older x-rays. Bronchoscopy is a consideration. 4. Results discussed with Dr. Ward
[2016-04-14 15:18] VITALS: BP 108/81
[2016-04-14 18:46] VITALS: BP 137/59
[2016-04-14 22:34] VITALS: BP 123/70
[2016-04-15 02:32] VITALS: BP 121/56
[2016-04-15 07:08] VITALS: BP 133/72
--- NOTE | 2016-04-15 08:30 | Progress Note ---
Subjective General 80 y.o female who was seen in the office with cough, cold symptoms and weakness too weak to transport easily. Was taken to the ER by ambulance where she was found to have hypoxia and ? copd flare with hyper expanded lungs on CXR. Admitted for treatment of copd with abx, steroids, and breathing treatments. CTA lungs ordered yesterday and revealed lingular consolidation and possible obstruction of bronchus. Xray requested old xrays for comparison but none are available and pt does not believe she has had any. No PE present. Severe COPD noted. Physical Exam Vital Signs / I&Os Vital Signs Date Time Temp Pulse Resp B/P Pulse O2 O2 Flow FiO2 Ox Delivery Rate 04/15 0740 2.0 04/15 0708 97.5 67 16 133/72 97 Nasal 2.0 Cannula 04/15 0232 97.9 67 18 121/56 89 Nasal 2.0 Cannula 04/15 0114 2.0 04/14 2234 97.9 64 20 123/70 93 Nasal 1.0 Cannula 04/14 2030 Nasal 1.0 Cannula 04/14 2000 1.0 04/14 1846 97.5 56 20 137/59 93 Nasal 1.0 Cannula 04/14 1518 98.1 78 20 108/81 92 Nasal 1.0 Cannula 04/14 1021 97.9 77 18 120/50 100 Room Air 04/14 1007 2.0 04/14 0932 2.0 I&O 04/14 0800 04/14 1600 04/15 0000 Intake Total 1870 1100 750 Output Total 9804 306 8303 Balance 720 330 -700 General Appearance Alert, Oriented X3, Cooperative, No acute distress Lungs Diffuse rhonchi and moderate wheeze. Cardiovascular Regular rate and rhythm Abdomen Normal bowel sounds, Soft, No tenderness Extremities No edema Skin Poor nail hygiene. LAB Results Laboratory Tests 04/14 04/15 0954 0527 Chemistry Plasma Sodium (136 - 145 mmol/L) 145 143 Plasma Potassium (3.5 - 5.1 mmol/L) 4.2 3.3 Plasma Chloride (98 - 107 mmol/L) 109 106 CO2 (Enzymatic) (21 - 32 mmol/L) 30 29 BUN (7 - 18 mg/dL) 8 7 Creatinine (0.6 - 1.3 mg/dL) 0.8 0.7 Est GFR ( Amer) (mL/min) >60 >60 Est GFR (Non-Af Amer) (mL/min) >60 >60 Glucose (70 - 110 mg/dL) 105 80 Plasma Calcium (8.5 - 10.1 mg/dL) 8.0 7.9 Plasma Magnesium (1.8 - 2.4 mg/dL) 1.4 2.0 Total Bilirubin (0.0 - 1.0 mg/dL) 0.2 0.2 AST (15 - 37 U/L) 30 33 ALT (12 - 78 U/L) 19 20 Alkaline Phosphatase (46 - 116 U/L) 44 42 Total Protein (6.4 - 8.2 g/dL) 5.7 6.1 Albumin (3.3 - 5.0 g/dL) 2.9 2.9 Hematology WBC (4.5 - 11.5 K/uL) 4.4 5.4 RBC (4.00 - 5.20 M/uL) 4.38 4.40 Hgb (12.0 - 16.0 gm/dL) 11.6 11.5 Hct (36.0 - 46.0 %) 36.6 36.5 MCV (80 - 100 fL) 84 83 MCH (26 - 34 pg) 27 26 RDW (11.6 - 14.8 %) 15.1 15.1 Neut % (Auto) (50 - 75 %) 67.6 70.0 Lymph % (Auto) (25 - 40 %) 20.4 18.6 [place] % (Auto) (3 - 14 %) 11.3 11.3 Eos % (Auto) (0 - 4 %) 0.4 0 Baso % (Auto) (0 - 2 %) 0.3 0.1 Plt Count, EDTA (150 - 400 K/uL) 194 199 PUBS MCHC (31 - 37 g/dL) 32 32 Imaging CTA as noted above. Assessment and Plan Problem List 1. COPD exacerbation Plan Continue current treatment as pt is improving gradually. 2. Weakness Plan Improving. 3. Hypokalemia Plan Will supplement with potassium 4. Lung consolidation Plan Consider bronchoscopy vs monitoring for resolution.
[2016-04-15 11:04] VITALS: BP 112/51
[2016-04-15 14:43] VITALS: BP 120/65
[2016-04-15 18:28] VITALS: BP 144/87
[2016-04-15 22:42] VITALS: BP 138/80
[2016-04-16] VITALS (8 sets, daily range): BP systolic 108–129; BP diastolic 61–75
--- NOTE | 2016-04-16 07:10 | Progress Note ---
Subjective General 80 y.o female who was seen in the office with cough, cold symptoms and weakness too weak to transport easily. Was taken to the ER by ambulance where she was found to have hypoxia and ? copd flare with hyper expanded lungs on CXR. Admitted for treatment of copd with abx, steroids, and breathing treatments. Patient states that she is with new O2 that she has been using. Has been with a ? mucus plug or mass in her lung at this time. No cp, has improved sob per patient. Physical Exam Vital Signs / I&Os Vital Signs Date Time Temp Pulse Resp B/P Pulse O2 O2 Flow FiO2 Ox Delivery Rate 04/16 0626 97.9 56 18 129/74 90 Nasal Cannula 04/16 0253 1.5 04/16 0221 97.9 79 15 126/73 90 Nasal 1.5 Cannula 04/15 2242 97.3 68 15 138/80 92 Nasal 1.5 Cannula 04/15 2027 1.5 04/15 1946 Nasal 1.5 Cannula 04/15 1828 97.5 78 15 144/87 97 Nasal 1.5 Cannula 04/15 1530 15 86 0.0 04/15 1443 97.9 72 15 120/65 96 Nasal 2.0 Cannula 04/15 1334 2.0 04/15 1104 97.5 67 16 112/51 94 Nasal Cannula 04/15 1008 Nasal 2.0 Cannula 04/15 0835 91 04/15 0740 2.0 04/15 0708 97.5 67 16 133/72 97 Nasal 2.0 Cannula I&O 04/16 0000 04/15 1600 04/15 0800 Intake Total 480 1100 1743 Output Total 1250 2100 1280 Balance -770 -1000 463 General Appearance Alert, Cooperative HEENT nasal canula Lungs coarse BS and occasional rhonchi Cardiovascular Regular rate and rhythm Extremities Normal exam, No edema LAB Results Laboratory Tests 04/16 0551 Chemistry Plasma Sodium (136 - 145 mmol/L) 142 Plasma Potassium (3.5 - 5.1 mmol/L) 3.1 Plasma Chloride (98 - 107 mmol/L) 105 CO2 (Enzymatic) (21 - 32 mmol/L) 27 BUN (7 - 18 mg/dL) 11 Creatinine (0.6 - 1.3 mg/dL) 0.8 Est GFR ( Amer) (mL/min) >60 Est GFR (Non-Af Amer) (mL/min) >60 Glucose (70 - 110 mg/dL) 141 Plasma Calcium (8.5 - 10.1 mg/dL) 7.6 Plasma Magnesium (1.8 - 2.4 mg/dL) 1.5 Total Bilirubin (0.0 - 1.0 mg/dL) 0.2 AST (15 - 37 U/L) 26 ALT (12 - 78 U/L) 21 Alkaline Phosphatase (46 - 116 U/L) 42 Total Protein (6.4 - 8.2 g/dL) 5.7 Albumin (3.3 - 5.0 g/dL) 2.7 Hematology WBC (4.5 - 11.5 K/uL) 5.0 RBC (4.00 - 5.20 M/uL) 4.20 Hgb (12.0 - 16.0 gm/dL) 11.1 Hct (36.0 - 46.0 %) 34.8 MCV (80 - 100 fL) 83 MCH (26 - 34 pg) 26 RDW (11.6 - 14.8 %) 14.6 Neut % (Auto) (50 - 75 %) 65.3 Lymph % (Auto) (25 - 40 %) 25.4 [place] % (Auto) (3 - 14 %) 7.8 Eos % (Auto) (0 - 4 %) 0.7 Baso % (Auto) (0 - 2 %) 0.8 Plt Count, EDTA (150 - 400 K/uL) 212 PUBS MCHC (31 - 37 g/dL) 32 Assessment and Plan Problem List 1. Lung consolidation Plan I have discussed with patient bronchoscopy. Seems a little confused. 2. COPD exacerbation Plan Is improved at this time but still on O2 NC 3. Weakness Plan Has PT involved may need to have SNF placement for strengthening. 4. Hypokalemia Plan resolved.
--- NOTE | 2016-04-16 12:01 | OPERATIVE REPORT ---
DATE OF SURGERY: 04/16/2016 SURGEON: Harika Owens III, MD FINANCIAL SALES ADVISOR: None. PREOPERATIVE DIAGNOSIS: 1. CT abnormality of left lung POSTOPERATIVE DIAGNOSIS: 1. Mucous plug PROCEDURE PERFORMED: 1. Bronchoscopy with fluoroscopic interpretation ANESTHESIA: General endotracheal. INDICATIONS: The patient is an 80-year-old female admitted to [facility] with a diagnosis of exacerbation of her COPD, emphysema. While she was in the emergency department, she was noted to have an elevated D-dimer, eventually having CTA which was interpreted by radiology as volume loss, left lung, along with questionable lingular atelectasis secondary to intrabronchial mucous plugging versus neoplasm. [facility] were asked to evaluate the patient. After a lengthy discussion with Dr. Domingo and the patient, it was decided to proceed. Because of her COPD, emphysema, we explained to her that she could be on the ventilator for a day or 2. She understood and agreed to proceed. SURGICAL FINDINGS: Normal-appearing tayla. There were thick, tenacious secretions in the left main stem bronchus. Using CT guidance and interpretation, we were able to evaluate the superior segment of the left lower lobe, along with the lateral posterior and anteromedial basilar segments. Again, using fluoroscopy, we were able to identify the lingula and the left upper bronchi. The thick, tenacious secretions at each section were irrigated with Mucomyst for a total of 20 mL, and this was suctioned out. There was no gross evidence of intrabronchial occlusion, i.e. neoplastic process. The scope was withdrawn. The right mainstem bronchus was inspected and found to be grossly normal. The scope was completely withdrawn. The patient tolerated the procedure well. Extubation is pending.
--- NOTE | 2016-04-16 12:01 | OPERATIVE REPORT ---
DATE OF SURGERY: 04/16/2016 SURGEON: Harika Owens III, MD COSMETOLOGY EDUCATOR: None. PREOPERATIVE DIAGNOSIS: 1. CT abnormality of left lung POSTOPERATIVE DIAGNOSIS: 1. Mucous plug PROCEDURE PERFORMED: 1. Bronchoscopy with fluoroscopic interpretation ANESTHESIA: General endotracheal. INDICATIONS: The patient is an 80-year-old female admitted to [facility] with a diagnosis of exacerbation of her COPD, emphysema. While she was in the emergency department, she was noted to have an elevated D-dimer, eventually having CTA which was interpreted by radiology as volume loss, left lung, along with questionable lingular atelectasis secondary to intrabronchial mucous plugging versus neoplasm. [facility] were asked to evaluate the patient. After a lengthy discussion with Dr. Domingo and the patient, it was decided to proceed. Because of her COPD, emphysema, we explained to her that she could be on the ventilator for a day or 2. She understood and agreed to proceed. SURGICAL FINDINGS: Normal-appearing tayla. There were thick, tenacious secretions in the left main stem bronchus. Using CT guidance and interpretation, we were able to evaluate the superior segment of the left lower lobe, along with the lateral posterior and anteromedial basilar segments. Again, using fluoroscopy, we were able to identify the lingula and the left upper bronchi. The thick, tenacious secretions at each section were irrigated with Mucomyst for a total of 20 mL, and this was suctioned out. There was no gross evidence of intrabronchial occlusion, i.e. neoplastic process. The scope was withdrawn. The right mainstem bronchus was inspected and found to be grossly normal. The scope was completely withdrawn. The patient tolerated the procedure well. Extubation is pending.
--- NOTE | 2016-04-16 14:32 | DIAGNOSTIC IMAGING REPORT ---
PROCEDURE: XR FLUOROSCOPY UP TO 1 HOUR INDICATION: BRONCHOSCOPY TECHNIQUE: C-arm fluoroscopy provided to Dr. Owens for bronchoscopy Fluoroscopy time 0.41 minutes 3.9 mGy). COMPARISON: None. FINDINGS: Fluoroscopic guidance was provided for bronchoscopy. IMPRESSION: 1. C-arm fluoroscopy for bronchoscopy (performed by Dr. Owens
[2016-04-17] VITALS (7 sets, daily range): BP systolic 124–153; BP diastolic 65–88
--- NOTE | 2016-04-17 09:17 | Progress Note ---
Subjective General Breathing much improved from yesterday since bronchoscopy per patient. Still mild wheezing, SOB, and cough. no nausea, vomitting, diarrhea, constipation or abd pain. No chest pain. Physical Exam Vital Signs / I&Os Vital Signs Date Time Temp Pulse Resp B/P Pulse O2 O2 Flow FiO2 Ox Delivery Rate 04/17 0848 1.0 04/17 0750 90 Room Air 04/17 0647 36.4 115 18 153/87 91 Room Air 04/17 0305 Nasal 1.0 Cannula 04/17 0239 36.6 85 16 140/88 98 Nasal 2.0 Cannula 04/17 0136 Nasal 2.0 Cannula 04/17 0131 2.0 04/16 2257 2.0 04/16 2227 37.0 96 16 121/75 94 Nasal 2.0 Cannula 04/16 1810 36.3 105 16 113/70 98 Nasal 3.0 Cannula 04/16 1600 Nasal 3.0 Cannula 04/16 1420 36.6 98 16 108/61 94 4.0 04/16 1350 5.0 04/16 1315 84 16 109/66 98 Mask 9.0 04/16 1256 95 16 111/66 98 Mask 9.0 04/16 1213 36.9 118 16 123/64 85 Nasal 2.0 Cannula 04/16 1150 121 14 116/87 92 Mask 8.0 04/16 1145 137 12 116/87 91 Mask 8.0 04/16 1140 128 15 112/69 90 NC/FT 8.0 04/16 1135 141 12 114/77 89 Nasal 4.0 Cannula 04/16 1130 145 12 112/77 92 Nasal 3.0 Cannula 04/16 1125 131 13 112/77 93 Nasal 3.0 Cannula 04/16 1121 36.5 132 17 127/62 97 Face Tent 3.0 I&O 04/17 0000 04/16 1600 04/16 0800 Intake Total 0620 487 6163 Output Total 6717 203 2626 Balance -239 165 -212 General Appearance Alert, Cooperative, No acute distress Lungs Wheezing diffusely with ok air movement. Crackles in lung bases. Cardiovascular Regular rate and rhythm, Normal S1 and S2, No murmurs, gallops, rubs Abdomen Normal bowel sounds, Soft, No tenderness Extremities No edema Assessment and Plan Problem List 1. COPD exacerbation Plan On nebs + steroids. Should finish abx in 2 days. Improving. Still requiring O2. Will consider discharge tomrorow if weaned off O2. 2. Hypoxia 3. Hypokalemia Plan Replacing. 4. Hypomagnesemia Plan Replacing.
[2016-04-18 02:07] VITALS: BP 181/96
[2016-04-18 02:51] VITALS: BP 155/68
[2016-04-18 06:52] VITALS: BP 142/90
--- NOTE | 2016-04-18 07:35 | Provider's Discharge Care Plan ---
Problem, Goal, Plan Problem List 1. COPD exacerbation Goals: Improved health/wellness Instructions: Follow up as directed, Increase activity level, Take meds as directed
--- NOTE | 2016-04-18 07:35 | Provider's Discharge Care Plan ---
Problem, Goal, Plan Problem List 1. COPD exacerbation Goals: Improved health/wellness Instructions: Follow up as directed, Increase activity level, Take meds as directed
[2016-04-18] MEDS ORDERED: CEFTIN500 MG PO (07:36)
[2016-04-18] MEDS ORDERED: MAG-OX 400400 MG PO (07:38)
[2016-04-18] MEDS ORDERED: ALBUTEROL HFA60 DOSE IN (07:40)
[2016-04-18] MEDS ORDERED: COMBIVENT RESPIMAT IN (07:40)
[2016-04-18] MEDS ORDERED: PREDNISONE10 MG PO (07:42)
--- NOTE | 2016-04-18 19:10 | DISCHARGE SUMMARY ---
ADMIT DATE: 04/12/2016 DISCHARGE DATE: 04/18/2016 ADMISSION DIAGNOSES: 1. Chronic obstructive pulmonary disease exacerbation. 2. Hypoxia: 3. Weakness. 4. Elevated D-dimer. DISCHARGE DIAGNOSIS: 1. Chronic obstructive pulmonary disease exacerbation, improving. 2. Weakness, improving. 3. Hypoxia, resolved. 4. Possible lung mass was ruled out. A mucus plug was found. 5. Hypokalemia, replaced. 6. Hypomagnesemia, replaced. HISTORY OF PRESENT ILLNESS: This is an 80-year-old female presenting to [facility] to [facility]. In the office, she was found to be short of breath and very weak. She was weak enough that she was unable to ambulate and/or transfer and was unable to walk over across the street for further evaluation and workup. At this point, the ambulance was called to transport the patient to the emergency department for further evaluation. The patient became hypoxic in the emergency department and oxygen was started. A chest x-ray was consistent with COPD exacerbation and admission to the hospital was recommended due to the chronic obstructive pulmonary disease exacerbation and hypoxia. HOSPITAL COURSE: The patient was admitted to the hospital and started on nebulizers, prednisone and antibiotics. The patient was slow to improve and therefore on the , a CTA was done, which ruled out a pulmonary embolism; however, did show severe emphysema and lingular atelectasis without evidence of a central mass. It states that this could have been the result of a mucus plug or a new bronchial obstructing lesion. Therefore, on 04/16/2016, Dr. Owens was consulted and the patient underwent a bronchoscopy which did in fact show a mucus plug. After removing the mucous plug via bronchoscopy, the patient's hypoxia significantly improved and breathing rapidly improved. The patient was weaned off oxygen. On the day of discharge, she was not hypoxic and was getting stronger slowly. PHYSICAL EXAMINATION: VITAL SIGNS: At the time of discharge, blood pressure is 142/90. Pulse is 58, respiratory rate 18, O2 saturation 94 on room air, T-max is 36.9 degrees Celsius. GENERAL: This is a well-appearing elderly patient sitting in bed in no apparent distress. HEENT: Head is atraumatic, normocephalic. LUNGS: Fairly clear with good air movement diffusely. HEART: S1, S2, regular rate and rhythm. No S3, S4, gallops, or rubs. There is a 2/6 systolic murmur increased at the base. ABDOMEN: Nontender, nondistended without hepatosplenomegaly or masses. Bowel sounds are active. There is no peripheral edema. DISCHARGE INSTRUCTIONS/MEDICATIONS: 1. The patient was discharged home to [facility] with home health services. 2. Diet: Regular. 3. Activity: Up ad dexter. 4. Medications: Cefuroxime 500 mg p.o. b.i.d. Magnesium 400 mg p.o. daily. Albuterol HFA 2 puffs inhaled q.4 hours p.r.n. shortness of breath. Combivent Respimat 1 puff inhaled q.i.d. Prednisone 20 mg p.o. daily x3 days, then 10 mg p.o. daily x3 days, Cardizem CD 180 mg p.o. daily, ketoconazole cream apply topically p.r.n. 5. The patient was also instructed to have her potassium and magnesium rechecked within 1 week.
== END 2016-04-18 11:05 | disposition home health service (06) | DRG 191 ==
LOC: ED SRH 13:11 → TRANS SRH 16:29 → ACUTE3 SRH 18:58 → ACUTE2 SRH 18:58
PROVIDERS: Specialist; ADMIT Emergency Medicine
PROC: 0BC98ZZ Extirpation of Matter from Lingula Bronchus, Via Natural or Artificial Opening Endoscopic (ICD-10-PCS; principal; 2016-04-16 10:00)
PROC: 0BC88ZZ Extirpation of Matter from Left Upper Lobe Bronchus, Via Natural or Artificial Opening Endoscopic (ICD-10-PCS; principal; 2016-04-16 10:00)
DX: J44.1 Chronic obstructive pulmonary disease with (acute) exacerbation (principal); T17.590A Other foreign object in bronchus causing asphyxiation, initial encounter; R09.02 Hypoxemia; R79.89 Other specified abnormal findings of blood chemistry; E86.0 Dehydration; I48.91 Unspecified atrial fibrillation; L21.9 Seborrheic dermatitis, unspecified; E87.6 Hypokalemia; E83.42 Hypomagnesemia; M81.0 Age-related osteoporosis without current pathological fracture; Z79.82 Long term (current) use of aspirin; F17.210 Nicotine dependence, cigarettes, uncomplicated
CPT/HCPCS: 50004; 60001; 70002; 80102; 82879; 83125; 85244; 90004; 90047; 90065; 90074; 90100; 90616; 91400; 91556; 91643; 92031; 92610; 92720; 93004; 95059